=== PATIENT | male | born 1960 ===

== ENCOUNTER 2025-01-03 09:06 | Outpatient (RCR) | payer BC, SELFPAY ==
[2025-01-03 09:23] LABS: Hematocrit 42.3 % (39.0-52.0); Hemoglobin 14.3 g/dL (13.0-18.0); Mean Corp Hgb Conc. 33.8 g/dL (33.0-37.0); Mean Corpuscular Volume 100.5 fL (80.0-94.0); Platelet Count 218 10^3/uL (130-400); Red Cell Dist. Width 12.5 % (11.5-14.5)
[2025-01-03 09:38] VITALS: BP 135/57
[2025-01-03 09:59] VITALS: BP 137/65
[2025-01-03 10:00] VITALS: BP 110/68
== END 2025-01-22 23:59 | disposition home or self-care (01) ==
LOC: OID 09:06
PROVIDERS: ATTENDING PHYSICIAN Family Medicine
DX: E83.110 Hereditary hemochromatosis (principal)
CPT/HCPCS: 36415; 85025; 99195